=== PATIENT | female | born 1960 | race Two or more races ===

== ENCOUNTER 2017-08-22 12:25 | Inpatient (IN) | payer OTHER ==
[2017-08-22 14:02] VITALS: BMI 29.0
--- NOTE | 2017-08-22 17:09 | HP ---
CIWA Score - CIWA Score Nausea/Vomitin Muscle Tremors: 1-None Visible, but [place] Anxiety: 1-Mildly Anxious Agitation: 1-Slight > Activity Paroxysmal Sweats: 1-Minimal Palms Moist Orientation: 0-Oriented Tacttile Disturbances: 2-Mild Itch/Numbness/Burn Auditory Disturbances: 1-Very Mild Visual Disturbances: 0-None Headache: 3-Moderate CIWA-Ar Total Score: 12 Admission ROS S - HPI Chief Complaint: Patient presents for ETOH withdrawal symptoms. Allergies/Adverse Reactions: Allergies Allergy/AdvReac Type Severity Reaction Status Date / Time No Known Allergies Allergy Verified 08/22/17 17:15 History of Present Illness: Patient presents for ETOH withdrawal symptoms. States she takes prescribed Klonipin for anxiety. Patient also went to [facility] last week and was treated for withdrawal symptoms. Completed detox at [facility] in 2016 but relapse shortly after discharge. Reports having seizures in past due to ETOH withdrawal. Last seizure unknown. Started drinking at at 49 due to of son and drinks 6 pack of beer and 1 pint of hard liquor daily. Reports H Asthma, Hep C and anxiety/depression. Denies SI/HI. Has history of suicide attempt 3 years ago by jumping in [employer] [place]. ISTOP checked for Klonipin prescription and shows no recent prescriptions. Reference number [id number]. Exam Limitations: Intoxication - Ebola screening Have you traveled outside of the country in the last 21 days: No Have you had contact with anyone from an Ebola affected area: No Have you been sick,other than usual withdrawal symptoms: No Do you have a fever: No - Review of Systems Constitutional: Night Sweats, Changes in sleep, Unexplained wgt Loss EENT: reports: Blurred Vision, Nose Congestion Respiratory: reports: Cough, Wheezing Cardiac: reports: Palpitations GI: reports: Diarrhea, Nausea, Poor Fluid Intake, Abdominal cramping : reports: Burning Musculoskeletal: reports: Back Pain, Joint Pain, Muscle Pain Integumentary: reports: Sweating Neuro: reports: Headache, Numbness, Seizure, Tingling, Tremors Endocrine: reports: Unexplained Weight Loss Hematology: reports: No Symptoms Reported Psychiatric: reports: Anxious, Depressed Patient History - Patient Medical History Hx Anemia: No Hx Asthma: Yes (Pt is on Albuterol IH) Hx Chronic Obstructive Pulmonary Disease (COPD): No Hx Cancer: No Hx Cardiac Disorders: No Hx Congestive Heart Failure: No Hx Hypertension: No Hx Hypercholesterolemia: No Hx Pacemaker: No HX Cerebrovascular Accident: No Hx Seizures: Yes (last seizure unknown) Hx Dementia: No Hx Diabetes: No Hx Gastrointestinal Disorders: No Hx Liver Disease: No Hx Genitourinary Disorders: No Hx Sexually Transmitted Disorders: No Hx Renal Disease (ESRD): No Hx Thyroid Disease: No Hx Human Immunodeficiency Virus (HIV): No Hx Hepatitis C: Yes Hx Depression: Yes Hx Suicide Attempt: Yes (Denies SI/HI) Hx Bipolar Disorder: Yes Hx Schizophrenia: No - Patient Surgical History Past Surgical History: Yes Hx Neurologic Surgery: No Hx Cataract Extraction: No Hx Cardiac Surgery: No Hx Lung Surgery: No Hx Breast Surgery: Yes (BILATERAL breast implants) Hx Breast Biopsy: No Hx Abdominal Surgery: Yes (gastric by pass in 1994 at [facility]) Hx Appendectomy: Yes (1978) Hx Cholecystectomy: Yes (in 1999) Hx Genitourinary Surgery: No Hx Section: Yes (C section x 6) Hx Orthopedic Surgery: No Hx Hysterectomy: No Other Surgical History: gallbladder removal Anesthesia Reaction: No - PPD History Previous Implant?: Yes Documented Results: Negative w/proof Implanted On Prior R Admission?: No Date: 03/01/16 Results: 0mm PPD to be Administered?: Yes - Reproductive History Last Menstrual Period: 04/22/06 Patient : No - Smoking Cessation Smoking history: Current every day smoker Have you smoked in the past 12 months: Yes Aproximately how many cigarettes per day: 2 Cigars Per Day: 0 Hx Chewing Tobacco Use: No Initiated information on smoking cessation: Yes 'Breaking Loose' booklet given: 08/22/17 - Substance & Tx. History Hx Alcohol Use: Yes Hx Substance Use: No Substance Use Type: Alcohol Hx Substance Use Treatment: Yes - Substances Abused Alcohol Route: Oral Frequency: Daily Amount used: 6 pack, 1 pint of hard liquor daily Age of first use: 49 Date of Last Use: 08/22/17 Family Disease History - Family Disease History Family Disease History: [place]: Mother ( 2013), Other: Father ( KILLED), Sister (alcohol,), Son ( KILLED) Admission Physical Exam BHS - Vital Signs Vital Signs: Vital Signs - 24 hr 08/22/17 14:01 Temperature 97.7 F Pulse Rate 84 Respiratory 18 Rate Blood Pressure 142/81 - Physical General Appearance: Yes: Intoxicated, Anxious HEENTM: Yes: EOMI, Hearing grossly Normal, Normocephalic, CHAEVZ, Pharynx Normal Respiratory: Yes: Chest Non-Tender, Lungs Clear, Normal Breath Sounds, No Respiratory Distress, No Accessory Muscle Use Neck: Yes: No masses,lesions,Nodules, Supple, Trachea in good position Breast: Yes: Breast Exam Deferred Cardiology: Yes: Regular Rhythm, Regular Rate, S1, S2 Abdominal: Yes: Normal Bowel Sounds, Non Tender, Flat, Soft Genitourinary: Yes: Within Normal Limits Back: Yes: Muscle Spasm Musculoskeletal: Yes: full range of Motion, Gait Steady, Back pain Extremities: Yes: Normal Range of Motion, Non-Tender, Tremors, Swelling Neurological: Yes: burrito maker II-XII NML intact, Alert, Motor Strength 5/5, Normal Response, Depressed Affect Integumentary: Yes: Normal Color, Warm, Moist Lymphatic: Yes: Within Normal Limits - Diagnostic (1) Alcohol dependence with uncomplicated withdrawal Current Visit: Yes Status: Acute (2) Depressed affect Current Visit: Yes Status: Acute (3) Anxiety Current Visit: Yes Status: Acute (4) Asthma Current Visit: Yes Status: Acute Qualifiers: Asthma persistence: unspecified (5) Nicotine dependence Current Visit: No Status: Acute Qualifiers: Nicotine product type: cigarettes Substance use status: uncomplicated Qualified Code(s): F17.210 - Nicotine dependence, cigarettes, uncomplicated (6) Hepatitis C carrier Current Visit: No Status: Chronic Cleared for Admission [facility] - Detox or Rehab [facility] Level of Care: Medically Managed Detox Regimen/Protocol: Librium [facility] Breath Alcohol Content Breath Alcohol Content: 0.315 Urine Pregancy Test - Result Urine Test Results: Negative- NO Line Present Urine Drug Screen - Results Drug Screen Negative: No Urine Drug Screen Results: BZO-Benzodiazepines
[2017-08-22] MEDS ORDERED: MAG HYDROX/AL HYDROX/SIMETH 30 ML UNIT-DOSE CUP PO PRN (17:27)
[2017-08-22] MEDS ORDERED: MAGNESIUM HYDROX 2400MG/30ML ORAL SUSPENSION 30 ML CUP PO PRN (17:27)
[2017-08-22] MEDS ORDERED: NICOTINE POLACRILEX 2 MG GUM BC PRN (17:27)
[2017-08-22] MEDS ORDERED: guaiFENesin/D-METHORPHAN HB 10 ML UNIT-DOSE CUPS PO PRN (17:27)
[2017-08-22] MEDS ORDERED: hydrOXYzine PAMOATE 50 MG CAPSULE (FP) PO PRN (17:27)
[2017-08-22] MEDS ORDERED: P-EPHED 60MG/TRIPROLIDI 2.5MG TABLET PO PRN (17:27)
[2017-08-22] MEDS ORDERED: LOPERAMIDE HCL 2 MG CAPSULE PO PRN (17:27)
[2017-08-22] MEDS ORDERED: MAGNESIUM CITRATE 300 ML BOTTLE PO PRN (17:27)
[2017-08-22] MEDS ORDERED: MENTHOL/PHENOL 1 EACH UD MM PRN (17:27)
[2017-08-22] MEDS ORDERED: IBUPROFEN 400 MG TABLET (FP) PO PRN (17:27)
[2017-08-22] MEDS ORDERED: ALBUTEROL SO4 18 GM HFA INHALER IH PRN (17:29)
[2017-08-22] MEDS ORDERED: chlordiazePOXIDE HCL 25 MG CAPSULE PO PRN (17:30)
[2017-08-22] MEDS ORDERED: chlordiazePOXIDE HCL 25 MG CAPSULE PO ONE (18:00)
[2017-08-22] MEDS ORDERED: MELATONIN 5 MG TABLETS PO PRN (22:00)
[2017-08-22] MEDS: chlordiazePOXIDE HCL 25 MG CAPSULE PO SCH (22:28)
[2017-08-22] MEDS: THIAMINE HCL 100 MG TABLET (FP) PO SCH (22:28)
[2017-08-23] MEDS: chlordiazePOXIDE HCL 25 MG CAPSULE PO SCH ×4 (05:45→22:40)
[2017-08-23 09:48] LABS: HEMATOCRIT 31.8 % (32.4-45.2); HEMOGLOBIN 10.7 GM/dL (10.7-15.3); MCH 31.4 pg (25.7-33.7); MCHC 33.6 g/dl (32.0-36.0); MEAN CELL VOLUME 93.4 fl (80-96); MEAN PLT VOLUME 10.7 fl (7.5-11.1); PLATELET COUNT 80 K/MM3 (134-434); RDW 15.6 % (11.6-15.6); WHITE BLOOD COUNT 5.1 K/mm3 (4.0-10.0)
--- NOTE | 2017-08-23 10:35 | PN ---
[facility] CIWA - CIWA Score Nausea/Vomitin-Mild Nausea/No Vomiting Muscle Tremors: 3 Anxiety: 3 Agitation: 3 Paroxysmal Sweats: 1-Minimal Palms Moist Orientation: 0-Oriented Tacttile Disturbances: 0-None Auditory Disturbances: 0-None Visual Disturbances: 0-None Headache: 0-None Present CIWA-Ar Total Score: 11 S Progress Note (SOAP) Subjective: tremor sweat anxiety restlessness Objective: 08/23/17 10:28 Vital Signs Temperature 98.2 F 08/23/17 04:00 Pulse Rate 100 H 08/23/17 08:30 Respiratory Rate 18 08/23/17 08:30 Blood Pressure 116/61 08/23/17 04:00 O2 Sat by Pulse Oximetry (%) Laboratory Last Values WBC 5.1 K/mm3 (4.0-10.0) D 08/23/17 06:00 RBC 3.40 M/mm3 (3.60-5.2) L 08/23/17 06:00 Hgb 10.7 GM/dL (10.7-15.3) 08/23/17 06:00 Hct 31.8 % (32.4-45.2) L 08/23/17 06:00 MCV 93.4 fl (80-96) 08/23/17 06:00 MCH 31.4 pg (25.7-33.7) 08/23/17 06:00 MCHC 33.6 g/dl (32.0-36.0) 08/23/17 06:00 RDW 15.6 % (11.6-15.6) D 08/23/17 06:00 Plt Count 80 K/MM3 (134-434) L D 08/23/17 06:00 MPV 10.7 fl (7.5-11.1) D 08/23/17 06:00 HIV-1 Interpretation Cancelled 08/23/17 07:40 HIV 1&2 Ag/Ab, 4th Gen Cancelled 08/23/17 07:40 lab noted Assessment: 08/23/17 10:35 withdrawal sx Plan: continue detox
[2017-08-23 10:40] LABS: ALBUMIN 2.4 g/dl (3.4-5.0); ANION GAP 10 (8-16); BLOOD UREA NITROGEN 4 mg/dL (7-18); CHLORIDE 105 mmol/L (98-107); CO2 23 mmol/L (21-32); GLUCOSE,RANDOM 160 mg/dL (74-106); SODIUM 138 mmol/L (136-145)
[2017-08-23 10:45] LABS: ALK PHOS 182 U/L (45-117); BILIRUBIN,TOTAL 0.9 mg/dL (0.2-1.0); SGOT/AST 143 U/L (15-37); SGPT/ALT 45 U/L (12-78); TOT PROT 8.4 g/dl (6.4-8.2)
[2017-08-23] MEDS: PRENATAL VITAMINS W/ FOLIC ACID TABLET (FP) PO SCH (11:04)
[2017-08-23 11:17] LABS: POTASSIUM 2.8 mmol/L (3.5-5.1)
--- NOTE | 2017-08-23 11:31 | EKG ---
Test Reason : Blood Pressure : / mmHG Vent. Rate : 075 BPM Atrial Rate : 075 BPM P-R Int : 136 ms QRS Dur : 072 ms QT Int : 426 ms P-R-T Axes : 060 047 064 degrees QTc Int : 475 ms NORMAL SINUS RHYTHM NORMAL ECG WHEN COMPARED WITH ECG OF 24-FEB-2015 14:06, NO SIGNIFICANT CHANGE WAS FOUND Confirmed by HARRY WHITEHEAD MD (2013) on 08/23/2017 11:30:50 AM Referred By: Confirmed By:HARRY WHITEHEAD MD
[2017-08-23] MEDS: POTASSIUM CHLORIDE ORAL LIQUID 20 MEQ/15 ML PO SCH ×2 (12:09→22:41)
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
[2017-08-23] MEDS: ACETAMINOPHEN 325 MG TABLET (FP) PO PRN ×2 (15:08→23:23)
[2017-08-23] MEDS ORDERED: ZOLPIDEM TARTRATE 10 MG TABLET (PARK CARE ONLY) PO PRN (22:00)
[2017-08-23] MEDS: THIAMINE HCL 100 MG TABLET (FP) PO SCH (22:40)
[2017-08-23] MEDS ORDERED: cloNIDine HCL 0.1 MG TABLET PO ONE (23:29)
--- NOTE | 2017-08-23 23:31 | PN ---
S Progress Note Note: Vital Signs Temperature 100.6 F H 08/23/17 22:00 Pulse Rate 81 08/23/17 22:00 Respiratory Rate 18 08/23/17 22:00 Blood Pressure 169/87 08/23/17 22:00 O2 Sat by Pulse Oximetry (%) Patient with elevated temp and BP asymtomatic One time doses clonidine 0.1 mg continue tylenol Increase fluids Continue to monitor
[2017-08-24] MEDS: chlordiazePOXIDE HCL 25 MG CAPSULE PO SCH ×2 (07:44→10:19)
[2017-08-24] MEDS: PRENATAL VITAMINS W/ FOLIC ACID TABLET (FP) PO SCH (10:19)
[2017-08-24] MEDS: POTASSIUM CHLORIDE ORAL LIQUID 20 MEQ/15 ML PO SCH (10:20)
--- NOTE | 2017-08-24 12:25 | PN ---
S CIWA - CIWA Score Nausea/Vomitin-No Nausea/No Vomiting Muscle Tremors: 3 Anxiety: 2 Agitation: 2 Paroxysmal Sweats: 1-Minimal Palms Moist Orientation: 0-Oriented Tacttile Disturbances: 1-Very Mild Itch/Numbness Auditory Disturbances: 0-None Visual Disturbances: 0-None Headache: 1-Very Mild CIWA-Ar Total Score: 10 BHS Progress Note (SOAP) Subjective: sweat tremor anxiety restlessness Objective: 08/24/17 12:27 Vital Signs Temperature 99.7 F H 08/24/17 10:44 Pulse Rate 69 08/24/17 10:44 Respiratory Rate 16 08/24/17 10:44 Blood Pressure 125/85 08/24/17 10:44 O2 Sat by Pulse Oximetry (%) Laboratory Last Values WBC 5.1 K/mm3 (4.0-10.0) D 08/23/17 06:00 RBC 3.40 M/mm3 (3.60-5.2) L 08/23/17 06:00 Hgb 10.7 GM/dL (10.7-15.3) 08/23/17 06:00 Hct 31.8 % (32.4-45.2) L 08/23/17 06:00 MCV 93.4 fl (80-96) 08/23/17 06:00 MCH 31.4 pg (25.7-33.7) 08/23/17 06:00 MCHC 33.6 g/dl (32.0-36.0) 08/23/17 06:00 RDW 15.6 % (11.6-15.6) D 08/23/17 06:00 Plt Count 80 K/MM3 (134-434) L D 08/23/17 06:00 MPV 10.7 fl (7.5-11.1) D 08/23/17 06:00 Sodium 138 mmol/L (136-145) 08/23/17 06:00 Potassium 2.8 mmol/L (3.5-5.1) L* 08/23/17 06:00 Chloride 105 mmol/L (98-107) 08/23/17 06:00 Carbon Dioxide 23 mmol/L (21-32) 08/23/17 06:00 Anion Gap 10 (8-16) 08/23/17 06:00 BUN 4 mg/dL (7-18) L 08/23/17 06:00 Creatinine 1.0 mg/dL (0.55-1.02) 08/23/17 06:00 Creat Clearance w eGFR 56.95 (>60) 08/23/17 06:00 Random Glucose 160 mg/dL (74-106) H 08/23/17 06:00 Calcium 7.0 mg/dL (8.5-10.1) L 08/23/17 06:00 Total Bilirubin 0.9 mg/dL (0.2-1.0) 08/23/17 06:00 AST 143 U/L (15-37) H 08/23/17 06:00 ALT 45 U/L (12-78) 08/23/17 06:00 Alkaline Phosphatase 182 U/L (45-117) H 08/23/17 06:00 Total Protein 8.4 g/dl (6.4-8.2) H 08/23/17 06:00 Albumin 2.4 g/dl (3.4-5.0) L 08/23/17 06:00 RPR Titer Nonreactive (NONREACTIVE) 08/23/17 06:00 HIV-1 Interpretation Cancelled 08/23/17 07:40 HIV 1&2 Ag/Ab, 4th Gen Cancelled 08/23/17 07:40 HIV 1&2 Antibody Screen Negative 08/23/17 08:01 HIV P24 Antigen Negative 08/23/17 08:01 lab noted continue K+ Assessment: 08/24/17 12:27 withdrawal sx Plan: continue detox
[2017-08-24 14:18] VITALS: BP 131/73; PULSE 71; TEMP 98.2
--- NOTE | 2017-08-24 17:31 | DS ---
[facility] Detox Discharge Summary Admission Date: 08/22/17 Discharge Date: 08/24/17 (AMA) - History Present History: Alcohol Dependence Pertinent Past History: Admitted for alcohol withdrawal and has not completed protocol. A&Ox3. Verbalized the importance of completing detox and the risks of relpase. Encouraged to remain and complete protocol but and verbalized an understanding but declined. Staes will f/u mental health status and alcohol support at . [facility] out-[facility]. States has family support. Will continue own home medications. - Physical Exam Results Vital Signs: Vital Signs Temperature 98.2 F 08/24/17 14:17 Pulse Rate 71 08/24/17 14:17 Respiratory Rate 17 08/24/17 14:17 Blood Pressure 131/73 08/24/17 14:17 O2 Sat by Pulse Oximetry (%) Pertinent Admission Physical Exam Findings: Here for alcohol detox. Has not completed protocol and is leaving AMA. Laboratory Last Values WBC 5.1 K/mm3 (4.0-10.0) D 08/23/17 06:00 RBC 3.40 M/mm3 (3.60-5.2) L 08/23/17 06:00 Hgb 10.7 GM/dL (10.7-15.3) 08/23/17 06:00 Hct 31.8 % (32.4-45.2) L 08/23/17 06:00 MCV 93.4 fl (80-96) 08/23/17 06:00 MCH 31.4 pg (25.7-33.7) 08/23/17 06:00 MCHC 33.6 g/dl (32.0-36.0) 08/23/17 06:00 RDW 15.6 % (11.6-15.6) D 08/23/17 06:00 Plt Count 80 K/MM3 (134-434) L D 08/23/17 06:00 MPV 10.7 fl (7.5-11.1) D 08/23/17 06:00 Sodium 138 mmol/L (136-145) 08/23/17 06:00 Potassium 2.8 mmol/L (3.5-5.1) L* 08/23/17 06:00 Chloride 105 mmol/L (98-107) 08/23/17 06:00 Carbon Dioxide 23 mmol/L (21-32) 08/23/17 06:00 Anion Gap 10 (8-16) 08/23/17 06:00 BUN 4 mg/dL (7-18) L 08/23/17 06:00 Creatinine 1.0 mg/dL (0.55-1.02) 08/23/17 06:00 Creat Clearance w eGFR 56.95 (>60) 08/23/17 06:00 Random Glucose 160 mg/dL (74-106) H 08/23/17 06:00 Calcium 7.0 mg/dL (8.5-10.1) L 08/23/17 06:00 Total Bilirubin 0.9 mg/dL (0.2-1.0) 08/23/17 06:00 AST 143 U/L (15-37) H 08/23/17 06:00 ALT 45 U/L (12-78) 08/23/17 06:00 Alkaline Phosphatase 182 U/L (45-117) H 08/23/17 06:00 Total Protein 8.4 g/dl (6.4-8.2) H 08/23/17 06:00 Albumin 2.4 g/dl (3.4-5.0) L 08/23/17 06:00 RPR Titer Nonreactive (NONREACTIVE) 08/23/17 06:00 HIV-1 Interpretation Cancelled 08/23/17 07:40 HIV 1&2 Ag/Ab, 4th Gen Cancelled 08/23/17 07:40 HIV 1&2 Antibody Screen Negative 08/23/17 08:01 HIV P24 Antigen Negative 08/23/17 08:01 A&O x3. - Treatment Hospital Course: Detox Protocol Followed (Did not complete protocol.) - Medication Discharge Medications: Ambulatory Orders Albuterol Sulfate Inhaler - [Ventolin HFA Inhaler -] 2 puff IH QID PRN 04/05/16 Risperidone [Risperdal -] 0.5 mg PO HS 04/05/16 hydrOXYzine PAMOATE [Vistaril -] 50 mg PO HS 04/05/16 Zolpidem Tartrate [Ambien] 10 mg PO HS 03/22/17 - Diagnosis (1) Asthma Current Visit: Yes Status: Chronic Qualifiers: Asthma persistence: unspecified (2) Depressed affect Current Visit: Yes Status: Chronic (3) Insomnia Current Visit: Yes Status: Chronic (4) Nicotine dependence Current Visit: Yes Status: Chronic Qualifiers: Nicotine product type: cigarettes Substance use status: uncomplicated Qualified Code(s): F17.210 - Nicotine dependence, cigarettes, uncomplicated (5) Alcohol dependence with withdrawal Current Visit: Yes Status: Chronic Qualifiers: Complication of substance-induced condition: uncomplicated Qualified Code(s ): F10.230 - Alcohol dependence with withdrawal, uncomplicated (6) Hepatitis C carrier Current Visit: Yes Status: Chronic - AMA Did Patient Leave Against Medical Advice: Yes (Refused to remain despite encouragedment. )
[2017-08-24 18:27] LABS: URINE APPEARANCE SLCLOUDY; URINE BILIRUBIN NEGATIVE (<2.0 mg/dL); URINE COLOR YELLOW; URINE GLUCOSE (UA) NEGATIVE (NEGATIVE); URINE KETONE NEGATIVE (NEGATIVE); URINE NITRITE NEGATIVE (NEGATIVE); URINE PROTEIN NEGATIVE (NEGATIVE); URINE UROBILINOGEN 4.0 E.U/dl mg/dL (0.2-1.0)
[2017-08-24 18:47] LABS: URINE LEUK ESTERASE 2+ (NEGATIVE)
[2017-08-24 18:49] LABS: EPI CELLS RARE /HPF (FEW); URINE BACTERIA RARE /hpf (NONE SEEN)
[2017-08-24] MEDS ORDERED: chlordiazePOXIDE 5 MG CAPSULE PO SCH (23:00)
[2017-08-25] MEDS ORDERED: chlordiazePOXIDE HCL 10 MG CAPSULE PO SCH (23:00)
== END 2017-08-24 17:29 | disposition left against medical advice (07) | DRG 770 ==
LOC: YASAS 12:25 → Y6N 17:55
PROVIDERS: ADMIT Surgery; ATTEND Surgery
PROC: HZ2ZZZZ Detoxification Services for Substance Abuse Treatment (ICD-10-PCS; principal; 2017-08-22)
DX: F10.230 Alcohol dependence with withdrawal, uncomplicated (principal); F17.210 Nicotine dependence, cigarettes, uncomplicated; F41.9 Anxiety disorder, unspecified; F43.10 Post-traumatic stress disorder, unspecified; F31.81 Bipolar II disorder; F19.24 Other psychoactive substance dependence with psychoactive substance-induced mood disorder; R45.89 Other symptoms and signs involving emotional state; G47.00 Insomnia, unspecified; B18.2 Chronic viral hepatitis C; J45.909 Unspecified asthma, uncomplicated; Z86.69 Personal history of other diseases of the nervous system and sense organs; Z91.5 Personal history of self-harm
CPT/HCPCS: 36415; 71046-TC-FY; 80053; 81003; 81015; 85027; 86593; 87389; 93005; 93010; J0735